=== PATIENT | female | born 1995 | race Caucasian/White ===

== ENCOUNTER 2016-09-26 10:52 | Emergency (ER) | payer OTHER ==
[~2016-09-26] VITALS: Ht 165.1 cm; Wt 80.0 kg
[2016-09-26 10:56] VITALS: BP 119/74; PULSE 63; RESP 16; O2SAT 99
--- NOTE | 2016-09-26 12:07 | ED.REPORT ---
HPI-Syncope Date of Service Sep 26, 2016 ED Provider: Thony Mcrae PA-C Tonia is an otherwise healthy 21-year-old female with chief complaint of syncopal episode. Patient reports that she became "woozy" at approximately 635 this morning while at work at a [employer]. At that point she reports amnesia of all events until 650. The episode was unwitnessed but mother reports speaking to the business optometrist/practice owner and reviewing security footage. The video shows that she sat down on a low stool and fell over onto the floor striking her head and shoulder against the ice machine. She appears to be unconscious for approximately 5 minutes. No seizure activity noted, but the patient does report becoming incontinent of urine. Patient reports upon regaining consciousness she closed the business and was picked up by her grandmother took her to her home. Patient reports one episode of vomiting and diarrhea. She slept for a brief period, before being picked up by her mother and brought to the department. She reports a global headache she rates as 3/ 10. Denies focal neurological symptoms, history of epilepsy, previous episodes of syncope. Denies any illness in the previous 2 months. Denies chest pain, palpitation, dyspnea, cough or abdominal pain, , drug use. Denies exogenous oxygen, unilateral leg swelling, recent surgery/immobilization/trauma , cancer, history of DVT/PE, hemoptysis. Nursing Notes Stated Complaint: POSSIBLE CUNCUSSION Chief Complaint: Multiple Trauma/Fall Nursing Notes Reviewed: Yes Allergies: Coded Allergies: No Known Allergies (Unverified , 09/26/16) General Time Seen by Provider: 11:33 Chief Complaint Lost consciousness Risk-Syncope PERC Rule PERC Result: All PERC criteria "No" Past Medical History Past Medical History Ovarian cysts Smoking History Never Smoker Review of Systems General: Denies fever, chills, malaise. HEENT: Denies congestion, headache, sore throat, vision change Respiratory: Denies dyspnea, cough, shortness of breath, wheezing. Cardiovascular: Denies chest pain, palpitations. Gastrointestinal: Admits vomiting, diarrhea, denies abdominal pain. Genitourinary: Denies frequency, urgency, dysuria, hematuria. Otherwise as noted in HPI. Physical Exam General: Well appearing, well developed, well nourished, no acute distress. Head: Atraumatic, normocephalic. No mastoid tenderness. Eyes: No scleral icterus or injection. No discharge. PERRL. Vision grossly intact. Ears: Pinna and tragus nontender with manipulation. External auditory canal patent, atraumatic and without discharge. Tympanic membrane martin, shiny and translucent without fluid, bulging, retraction or perforation. Hearing grossly intact. Nose: Symmetrical, nares patent without discharge. No frontal or maxillary sinus tenderness. Mouth/pharynx: normal dentition, mucus membranes moist. Tonsils 2+ and symmetrical, uvula midline. Pharynx noninjected, no cobblestoning or discharge. Voice clear. Neck: No tenderness or lymphadenopathy. Trachea midline. Respiratory: Regular rate and rhythm. Breath sounds present, clear to auscultation and equal bilaterally. Cardiovascular: Regular rate and rhythm, without murmur, gallop or rub. No pedal edema. Gastrointestinal: Abdomen flat and non-tender without guarding or rebound. Bowel sounds normoactive. Skin: Warm and dry. Neurological: Normal gait, heel toe, toe walk, heel walk, Romberg. Negative pronator drift Cranial nerves: Vision grossly intact, PERRL, EOMI. Facial motion symmetrical, sensation to light touch over forehead, maxilla and mandible present and equal B /L. Voice clear and fluent, no drooling/pooling of saliva, uvula rises midline. Legs: No leg swelling, calf tenderness, or Homans sign Psychological: Alert and oriented. Speech appropriate, linear and logical. Behavior appropriate. Initial Vital Signs Vital Signs (First) Date Time Temp Pulse Resp B/P Pulse Ox O2 Delivery O2 Flow Rate FiO2 09/26/16 10:56 37 63 16 119/74 99 Room Air Initial VS: Reviewed, Vital signs normal Interpretation & Diagnostics Lab Results Interpretation Result Diagram: 09/26/16 1221 09/26/16 1221 Test 09/26/16 12:21 White Blood Count 6.7th/mm3 (3.8-10.1) Red Blood Count 4.43mil/mm3 (3.90-5.20) Hemoglobin 12.2g/dL (12.0-15.6) Hematocrit 37.0% (35.0-46.0) Mean Corpuscular Volume 83.5fL (81-100) Mean Corpuscular Hemoglobin 27.5pg (27.0-35.0) Mean Corpuscular Hemoglobin Concent 33.0% (32.0-37.0) Red Cell Distribution Width 13.2% (12.3-15.4) Platelet Count 191bil/L (150-400) Neutrophils (%) (Auto) 77.1% (40-74) Lymphocytes (%) (Auto) 19.2% (14-46) Monocytes (%) (Auto) 3.3% (4-12) Eosinophils (%) (Auto) 0% (0-5) Basophils (%) (Auto) 0.3% (0-3) Sodium Level 139mEq/L (134-144) Potassium Level 4.3mEq/L (3.5-5.2) Chloride Level 105mEq/L (97-108) Carbon Dioxide Level 23mmol/L (18-29) Blood Urea Nitrogen 11mg/dL (6-20) Creatinine 0.79mg/dL (0.57-1.00) Estimat Glomerular Filtration Rate 130mL/min (>59) Glucose Level 97mg/dL (60-99) Calcium Level 9.3mg/dL (8.5-10.1) Total Bilirubin 0.4mg/dL (0.0-1.2) Aspartate Amino Transf (AST/SGOT) 21U/L (0-50) Alanine Aminotransferase (ALT/SGPT) 21U/L (0-32) Alkaline Phosphatase 56U/L (25-150) Total Protein 7.5g/dL (6.4-8.4) Albumin 4.2g/dL (3.4-5.0) Hold Steven Top Tube Received (Received) ECG Interpretation ECG Interpretation: EKG demonstrates a normal sinus rhythm, no findings of dysrhythmia-no markers of WPW, no findings of Brugada syndrome, no QT prolongation Time: 12:46 Interpreted by: ED physician CT Head Interpretation PROCEDURE: CT BRAIN WITHOUT CONTRAST ([id number]) INDICATIONS: syncope IMPRESSION: 1. No acute intracranial process. Interpretation / Wet Read by: Interpret - Radiologist Re-Eval/Medical Decision Med Decision/Clinical Course Discussed the case with Dr. Lee In brief this is an otherwise healthy 21-year-old female presents to emergency department after an episode of losing consciousness at work this morning. Patient describes becoming woozy and then regaining consciousness about 15 minutes later. The event was unwitnessed but security camera footage shows her sitting on a low stool then falling to the ground where she remain still for about 5 minutes, no indication of tonic-clonic seizure though she does report losing control of her bladder. She denies any history of seizures. Complains of a headache at this time. Physical exam is benign with normal neurological examination. ECG, CT of the brain are normal. Labs, including glucose are normal. Differential is syncope versus seizure at this point. I spoke Dr. Pitt at [facility], where she will follow-up next week. Advised her not to drive until having follow-up. Given return precautions. Consultation : Referral / Consult Name: John Tay MD Consulted With: Primary care physician Call Returned at: 14:29 Senior Front End Engineer: Will see in office Note: Discussed the case with Dr. tay at [facility]. The patient has an appointment next week to address anxiety, but will use this time to discuss her most recent episode and consider an EEG. Discharge & Departure Impression: Primary Impression: Loss of consciousness Disposition: Home Discharge Condition All VS Reviewed: Yes Condition: Stable Additional Instructions: Evaluation for loss of consciousness in the ED. ECG and CT scan of the brain are both normal, which is reassuring that this was not caused by your heart or a brain tumor or bleeding. Physical is basically normal, with no neurological deficits detected. We cannot say precisely what caused you to lose consciousness at this point, though we did rule out immediately dangerous causes. Further testing will be necessary to determine the cause. You should address this at your appointment with Dr. Morales next week. At this point there is no indication to put you on any medication, though that may be necessary in the future. Return to emergency department if you have another episode, or if you have any new or worsening symptoms. Referrals: Elham Morales MD EDSupervising Provider for APC: Juwan Lee MD copies to: Elham Morales MD, Seth PA-C Sep 26, 2016 12:07 Juwan Lee MD Sep 26, 2016 12:46
[2016-09-26 12:32] LABS: BASOPHILS % (AUTO) 0.3 % (0-3); EOSINOPHILS % (AUTO) 0 % (0-5); MONOCYTES % (AUTO) 3.3 % (4-12); Mean Corpuscular Hemoglobin 27.5 pg (27.0-35.0); Mean Corpuscular Volume 83.5 fL (81-100); NEUTROPHILS % (AUTO) 77.1 % (40-74); Platelet Count 191 bil/L (150-400)
[2016-09-26 12:39] VITALS: BP 116/76; PULSE 64; RESP 16; O2SAT 99
--- NOTE | 2016-09-26 13:27 | DRSVH ---
PROCEDURE: CT BRAIN WITHOUT CONTRAST ([id number]) INDICATIONS: syncope TECHNIQUE: Noncontrast 4.5 mm thick angled axial sections acquired from the foramen magnum to the vertex, with c oronal reformats. COMPARISON: None. FINDINGS: Image quality: Excellent. CSF spaces: Basal cisterns are patent. No extra-axial fluid collections. Ventricles are normal in size and shape. Brain: No midline shift. No intracranial masses or hemorrhage. Crenshaw-white matter interface is norm al. Skull and face: Calvarium and visualized facial bones are intact, without suspicious lesions. Sinuses: Visualized sinuses and mastoids are clear. IMPRESSION: 1. No acute intracranial process. Dictated by: Laney Wells M.D. on 09/26/2016 at 13:25 Approved by: Laney Wells M.D. on 09/26/2016 at 13:25
[2016-09-26 14:59] VITALS: BP 116/76; PULSE 64; RESP 16; O2SAT 99
== END 2016-09-26 14:59 | disposition home or self-care (01) ==
LOC: SED 10:52
DX: R55 Syncope and collapse (principal); W18.39XA Other fall on same level, initial encounter; Y92.513 Shop (commercial) as the place of occurrence of the external cause; Y93.89 Activity, other specified; Y99.0 Civilian activity done for income or pay